=== PATIENT | male | born 1995 | race Caucasian/White ===

== ENCOUNTER → 2016-08-16 | Outpatient (CLI) | payer BC, OTHER ==
--- NOTE | 2016-08-16 11:54 | DIAGNOSTIC IMAGING REPORT ---
LEFT ANKLE MIN 3 VIEWS ROUTINE CLINICAL HISTORY: Left ankle pain following injury. COMPARISON: Leg length study January 24, 2016. FINDINGS: Alignment of the left ankle is anatomic. No acute fracture is identified. Talar dome is intact. There is moderate ankle soft tissue swelling, greater medially. IMPRESSION: 1. No acute fracture or dislocation of the left ankle. 2. Moderate ankle soft tissue swelling. Electronically signed by: Herman Valero M.D. 08/16/2016 11:53 AM Dictated Date/Time: 08/16/2016 11:51 AM
== END | disposition home or self-care (01) ==
LOC: C.RAD 11:31
PROVIDERS: ATTEND Family Medicine Sports Medicine
DX: M25.572 Pain in left ankle and joints of left foot (principal); M79.9 Soft tissue disorder, unspecified

== ENCOUNTER → 2016-08-18 | Outpatient (CLI) | payer BC, OTHER ==
--- NOTE | 2016-08-19 10:16 | DIAGNOSTIC IMAGING REPORT ---
MRI OF THE LEFT ANKLE WITHOUT CONTRAST CLINICAL HISTORY: Left ankle sprain. Twisting injury. COMPARISON STUDY: Left ankle radiographs August 16, 2016. TECHNIQUE: Utilizing a 1.5 Татьяна magnet and dedicated coil, multiplanar, multiecho imaging of the left ankle was performed without intravenous or intraarticular contrast. FINDINGS: Alignment of the left ankle is anatomic. There is linear hypointense signal abnormality through the posterior aspect of the tibia shown best on sagittal image 11 of 22. This is consistent with a nondisplaced posterior tibial fracture with intra-articular extension. No additional fractures are identified on this examination. There is extensive subcutaneous edema of the left ankle and hindfoot. The flexor, peroneal and extensor tendons are intact. Achilles tendon and plantar fascia are intact. Talar dome is intact. The calcaneofibular ligament is likely intact. There is intermediate signal within the anterior talofibular ligament which suggest a partial tear. There is a complete tear of the anterior tibiofibular ligament as well as a suspected tear of the posterior tibiofibular ligament. There is a suspected tear of the deltoid ligament. IMPRESSION: 1. Acute nondisplaced fracture of the posterior distal left tibia with intra-articular extension. 2. Small left ankle joint effusion extensive subcutaneous edema of the left ankle and hindfoot. 3. Tears of the anterior and posterior tibiofibular ligaments and a partial tear of the anterior talofibular ligament 4. Suspected tear of the deltoid ligament. Electronically signed by: Herman Valero M.D. 08/19/2016 10:15 AM Dictated Date/Time: 08/18/2016 7:38 PM
== END | disposition home or self-care (01) ==
LOC: C.MRI 18:16
PROVIDERS: ATTEND Family Medicine Sports Medicine
DX: S93.432A Sprain of tibiofibular ligament of left ankle, initial encounter (principal); S93.492A Sprain of other ligament of left ankle, initial encounter; X58.XXXA Exposure to other specified factors, initial encounter

== ENCOUNTER → 2016-08-20 | Outpatient (CLI) | payer BC, OTHER ==
--- NOTE | 2016-08-20 17:07 | DIAGNOSTIC IMAGING REPORT ---
CT OF THE LEFT ANKLE CT DOSE: 129.88 mGy.cm HISTORY: Pain S93.432A TECHNIQUE: Multiaxial CT images of the left ankle were performed and reformatted in the sagittal and coronal plane without the use of contrast. COMPARISON: MRI dated 08/18/2016 FINDINGS: Fractures confirmed of the posterior margin of the distal tibia. There is mild superior displacement of the posterior fracture fragments x 1.3 mm. There is extension to the articular services. There is mild bony distraction of the posterior fragment estimated 2.5 mm. Subtalar joint is intact. All remaining osseous structures are unremarkable. Ankle mortise is aligned anatomically. Evaluation of ligamentous and tendinous structures is not possible CT exam as compared to the prior MRI exam. IMPRESSION: 1. Mildly displaced avulsion type fractures of the posterior lateral aspect distal tibia. 2. Fracture extends to the articular services with mild depression of the anterior fragment of 1.3 mm at the posterior fragment showing posterior displacement of approximately 2.5 mm. Electronically signed by: Willie Richards M.D. 08/20/2016 5:06 PM Dictated Date/Time: 08/20/2016 5:02 PM
== END | disposition home or self-care (01) ==
LOC: C.CTS 16:33
PROVIDERS: ATTEND Physical Medicine & Rehabilitation Sports Medicine
DX: S93.432A Sprain of tibiofibular ligament of left ankle, initial encounter (principal); X58.XXXA Exposure to other specified factors, initial encounter

== ENCOUNTER → 2016-09-02 | Outpatient (CLI) | payer BC, OTHER | END | disposition home or self-care (01) | LOC: C.RDSM 14:43 | PROVIDERS: ATTEND Physical Medicine & Rehabilitation Sports Medicine | DX: M25.572 Pain in left ankle and joints of left foot (principal) ==

== ENCOUNTER → 2016-09-22 | Outpatient (CLI) | payer BC, OTHER | END | disposition home or self-care (01) | LOC: C.RDSM 15:30 | PROVIDERS: ATTEND Physical Medicine & Rehabilitation Sports Medicine | DX: S93.432D Sprain of tibiofibular ligament of left ankle, subsequent encounter (principal); S82.392D Other fracture of lower end of left tibia, subsequent encounter for closed fracture with routine healing; X58.XXXD Exposure to other specified factors, subsequent encounter ==

== ENCOUNTER → 2016-10-13 | Outpatient (CLI) | payer BC, OTHER | END | disposition home or self-care (01) | LOC: C.RDSM 14:14 | PROVIDERS: ATTEND Physical Medicine & Rehabilitation Sports Medicine | DX: S82.392D Other fracture of lower end of left tibia, subsequent encounter for closed fracture with routine healing (principal); X58.XXXD Exposure to other specified factors, subsequent encounter ==

== ENCOUNTER → 2016-12-31 | Outpatient (CLI) | payer BC, OTHER | END | disposition home or self-care (01) | LOC: C.RDSM 11:41 | PROVIDERS: ATTEND Physical Medicine & Rehabilitation Sports Medicine | DX: S82.392D Other fracture of lower end of left tibia, subsequent encounter for closed fracture with routine healing (principal); X58.XXXD Exposure to other specified factors, subsequent encounter ==

== ENCOUNTER → 2017-02-23 | Outpatient (CLI) | payer BC, OTHER ==
--- NOTE | 2017-02-24 13:30 | DIAGNOSTIC IMAGING REPORT ---
MRI OF THE LEFT ANKLE AND HINDFOOT WITHOUT CONTRAST CLINICAL HISTORY: Left Achilles tendinitis. History of fracture. COMPARISON STUDY: Left ankle radiographs December 31, 2016 and MRI of the left ankle August 18, 2016. TECHNIQUE: Utilizing a 1.5 Татьяна magnet and dedicated coil, multiplanar, multiecho imaging of the left ankle and hindfoot was performed without intravenous or intraarticular contrast. FINDINGS: A marker was placed on the skin at site of maximal pain. This overlies the Achilles tendon, just distal to the myotendinous junction. The Achilles tendon and adjacent soft tissues are normal. The calcaneus is normal. Cortical irregularity with marrow signal abnormality within the posterior malleolus is noted at site of fracture shown on exam of August 18, 2016. Intra-articular extension is noted. There is mild increased T2 signal adjacent to the fracture. No additional fractures are identified on this examination. The flexor, extensor and peroneal tendons are intact. The anterior and posterior tibiofibular ligaments are indistinct and likely torn, as shown on prior MRI. A suspected deltoid ligament tear is present. Soft tissue edema of the left ankle and hindfoot shown on MRI August 18, 2016 has resolved. Talar dome is intact. IMPRESSION: 1. Normal MRI appearance of the Achilles tendon. 2. No change in alignment of the fracture of the posterior malleolus with intra-articular extension. Mild adjacent marrow signal abnormality suggests a healing fracture. Fracture healing is likely incomplete. 3. Interval resolution of soft tissue edema of the left ankle and hindfoot shown on prior MRI. 4. Redemonstration of suspected tears of the anterior and posterior tibiofibular ligaments, the anterior talofibular ligament and deltoid ligament. Electronically signed by: Herman Valero M.D. 02/24/2017 1:29 PM Dictated Date/Time: 02/23/2017 10:12 PM
== END | disposition home or self-care (01) ==
LOC: C.MRI 20:48
PROVIDERS: ATTEND Family Medicine Sports Medicine
DX: M76.61 Achilles tendinitis, right leg (principal)

== ENCOUNTER → 2017-06-06 | Outpatient (CLI) | payer BC, OTHER ==
--- NOTE | 2017-06-06 11:55 | DIAGNOSTIC IMAGING REPORT ---
LEFT WRIST 5 VIEWS CLINICAL HISTORY: Left wrist pain and injury. FINDINGS: 5 views of the left wrist are obtained. No prior studies are available for comparison at the time of dictation. The skeletal structures are well mineralized. There is a minimally distracted fracture of the pisiform, best seen on the hamate view. No additional fracture is seen. The hook of the hamate appears intact. The joint spaces of the wrist are well-maintained. Mild soft tissue swelling is present around the wrist. IMPRESSION: There is a minimally distracted fracture of the pisiform with overlying soft tissue edema. Electronically signed by: Jose Enrique Langford M.D. 06/06/2017 11:54 AM Dictated Date/Time: 06/06/2017 11:52 AM
== END | disposition home or self-care (01) ==
LOC: C.RAD 11:29
PROVIDERS: ATTEND Family Medicine Sports Medicine
DX: M25.532 Pain in left wrist (principal); S62.162A Displaced fracture of pisiform, left wrist, initial encounter for closed fracture; X58.XXXA Exposure to other specified factors, initial encounter

== ENCOUNTER → 2017-07-08 | Outpatient (CLI) | payer BC, OTHER | END | disposition home or self-care (01) | LOC: C.RDSM 10:22 | PROVIDERS: ATTEND Orthopaedic Surgery | DX: S62.165A Nondisplaced fracture of pisiform, left wrist, initial encounter for closed fracture (principal) ==

== ENCOUNTER → 2017-10-12 | Outpatient (CLI) | payer BC, OTHER ==
--- NOTE | 2017-10-12 20:00 | DIAGNOSTIC IMAGING REPORT ---
MRI OF THE LEFT ANKLE WITHOUT IV CONTRAST CLINICAL HISTORY: Left ankle tendinitis. COMPARISON STUDY: MRI of the left ankle dated 02/23/2017. Left ankle radiographs dated 12/31/2016. TECHNIQUE: MRI of the left ankle is performed utilizing various T1 and T2-weighted sequences in the axial, sagittal, and coronal planes. IV contrast was not administered for this examination. Note that interpretation is suboptimal without current plain film correlate. FINDINGS: Cortical irregularity and marrow signal abnormality/mild edema within the posterior malleolus is again seen. This has not significantly changed from the 02/23/2017 examination. This extends to the articular surface and there is associated osteochondritis with focal cartilage loss. No additional foci of marrow signal abnormality are identified. There is no evidence of osteochondral defect in the talar dome. There is a trace ankle joint effusion. The Achilles tendon is normal in morphology and signal intensity. The anterior, posterior, and peroneal tendons are intact. A cutaneous marker overlies the tibialis posterior and the flexor digitorum longus tendons along the medial aspect of the talocalcaneal articulation. There is likely mild tenosynovitis of the tibialis posterior tendon, with no abnormal signal within the tendon substance. Minimal subcutaneous soft tissue edema is suggested at this site. There is likely chronic tearing of the anterior and posterior tibiofibular ligaments. A chronic deltoid ligament tear is suspect. The anterior talofibular ligament is grossly intact. Visualized portions of the plantar fascia are normal in appearance. IMPRESSION: 1. No significant change in marrow signal abnormality/healing fracture involving the posterior malleolus with associated mild to moderate osteochondritis as compared to the 02/23/2017 examination. 2. Findings suggest mild tenosynovitis of the tibialis posterior tendon. No tearing is seen. 3. Small joint effusion. 4. The Achilles tendon is normal in morphology and signal intensity. 5. Minimal subcutaneous soft tissue edema suggested along the medial aspect of the ankle at the site of the cutaneous marker. 6. Chronic-appearing tears involving the anterior and posterior tibiofibular ligaments, as well as the deltoid ligament are similar to previous. Dictated: 10/12/2017 4:50 PM Transcribed: 10/12/2017 7:59 PM Johanna Electronically signed by: Jose Enrique Langford M.D. 10/13/2017 8:02 AM Dictated Date/Time: 10/12/2017 4:50 PM
== END | disposition home or self-care (01) ==
LOC: C.MRIBC 15:26
PROVIDERS: ATTEND Family Medicine Sports Medicine
DX: M76.61 Achilles tendinitis, right leg (principal); M93.971 Osteochondropathy, unspecified, right ankle and foot; M25.471 Effusion, right ankle; S93.431A Sprain of tibiofibular ligament of right ankle, initial encounter; S93.421A Sprain of deltoid ligament of right ankle, initial encounter; X58.XXXA Exposure to other specified factors, initial encounter

== ENCOUNTER → 2018-02-28 | Outpatient (CLI) | payer BC, OTHER | END | disposition home or self-care (01) | LOC: C.RDSM 16:17 | PROVIDERS: ATTEND Family Medicine Sports Medicine | DX: M25.571 Pain in right ankle and joints of right foot (principal); M25.572 Pain in left ankle and joints of left foot ==